=== PATIENT | female | born 1985 | race Caucasian/White ===

== ENCOUNTER 2016-04-29 11:44 | Emergency (ER) | payer OTHER ==
[~2016-04-29] VITALS: Ht 154.9 cm; Wt 81.0 kg
[~2016-04-29 11:44] MED LIST: IBUP800T23 PO; ZOFR4TAB3 SL
[2016-04-29 11:48] VITALS: BP 122/81; PULSE 82; RESP 16; TEMP 98; O2SAT 100
[2016-04-29] MEDS ORDERED: NAPROXEN 500 MG TAB PO ONE (12:15)
[2016-04-29] MEDS ORDERED: CYCLOBENZAPRINE HCL 10 MG TAB PO ONE (12:15)
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
[2016-04-29] MEDS ORDERED: NAPR500 PO (13:26)
[2016-04-29] MEDS ORDERED: CYCL1TAB29 PO (13:26)
== END 2016-04-29 13:32 | disposition home or self-care (01) ==
LOC: PHEFT 11:44
DX: S16.1XXA Strain of muscle, fascia and tendon at neck level, initial encounter (principal); M25.511 Pain in right shoulder; M25.561 Pain in right knee; V43.62XA Car passenger injured in collision with other type car in traffic accident, initial encounter; Y93.9 Activity, unspecified; Y92.9 Unspecified place or not applicable; Y99.9 Unspecified external cause status
CPT/HCPCS: 72050; 73030; 73564; 99283

== ENCOUNTER 2016-08-17 22:53 | Emergency (ER) | payer OTHER ==
[~2016-08-17] VITALS: Ht 154.9 cm; Wt 84.1 kg
[~2016-08-17 22:53] MED LIST changes: +CYCL1TAB29 PO; +NAPR500 PO
[2016-08-17 22:56] VITALS: BP 118/80; PULSE 92; RESP 18; TEMP 98.4; O2SAT 100
[2016-08-17] MEDS ORDERED: IBUPROFEN 800 MG TAB PO ONE (23:15)
[2016-08-17] MEDS ORDERED: PENICILLIN V POTASSIUM 500 MG TAB PO ONE (23:15)
[2016-08-17] MEDS ORDERED: IBUP800T23 PO (23:16)
[2016-08-17] MEDS ORDERED: PENI500T PO (23:16)
--- NOTE | 2016-08-17 23:21 | PD ---
HPI Chief Complaint: Oral / Dental Pain or Problem Time Seen by Provider: 23:12 Travel History International Travel<30 days: No Contact w/Intl Traveler<30days: No Traveled to known affect area: No History of Present Illness HPI 28th year-old female presents to the emergency department for complaint of one day of left mandible swelling and tenderness. Pain is 9/10 in intensity. Patient did take a one-time dose of ibuprofen 800 mg earlier in the afternoon. Patient denies other concerns or complaints. Patient does have referred pain to the ear. Patient denies any difficulty swallowing and has had no stridor or hoarseness. Patient denies history of . Patient's had no fever. Patient is not diabetic. PFSH Past Medical History Narrative Medical Bipolar disorder, dyslipidemia, hypertension, ovarian cyst; tubal ligation, C- section; LMP 08/09/16 denies ; tobacco use; nursing notes reviewed Hx Anticoagulant Therapy: No Bipolar Disorder: Yes Anxiety: Yes Cardiovascular Problems: No High Cholesterol: Yes Chemotherapy: No Cerebrovascular Accident: No Diabetes: No Diminished Hearing: No Gastrointestinal Disorders: Yes (GALLBLADDER DISEASE) Hypertension: Yes ( INDUCED 2004-) Respiratory: No Immunizations Current: Yes ?: Unknown LMP: August 09, 2016 : 4 Para: 3 Miscarriage: 1 Ovarian Cysts: Yes (2003 LEFT OVARY) Tubal Ligation: Yes Past Surgical History Section: Yes (x3) Hysterectomy: No Social History Alcohol Use: No Tobacco Use: No (QUIT 2009) Substance Use: No (HX OF BENZO ABUSE, DENIES (12/31/15)) Allergies-Medications (Allergen,Severity, Reaction): Coded Allergies: No Known Allergies (Verified , 08/17/16) Reported Meds & Prescriptions Reported Meds & Active Scripts Active Flexeril (Cyclobenzaprine HCl) 10 Mg Tab 10 Mg PO Q8HR PRN Naprosyn (Naproxen) 500 Mg Tab 500 Mg PO Q12HR PRN Ibuprofen 800 Mg Tab 800 Mg PO Q8H PRN Zofran Odt (Ondansetron Odt) 4 Mg Tab 4 Mg SL Q6HR PRN Review of Systems Except as stated in HPI: all other systems reviewed are Neg General / Constitutional: No: Fever HENT: Positive: Dental Difficulties, No: Congestion Cardiovascular: No: Chest Pain or Discomfort Respiratory: No: Shortness of Breath Gastrointestinal: No: Vomiting, Abdominal Pain Genitourinary: No: Flank Pain Musculoskeletal: No: Myalgias, Arthralgias Skin: Positive Lumps, No Rash Psychiatric: No: Anxiety (left jaw) Hematologic/Lymphatic: No: Lymph Node Enlargement Physical Exam Narrative GENERAL: Well-developed well-nourished obese female in no acute distress no respiratory distress; no stridor or hoarseness. SKIN: Warm and dry. HEAD: Normocephalic. EYES: No scleral icterus. No injection or drainage. ENT: Mucous membranes moist airway is patent dental caries noted and significant dental decay affecting the #14 tooth with gingival edema and tenderness induration without fluctuance or pointing reproducible pain at site of soft tissue swelling of jaw. NECK: Supple, trachea midline. No JVD or lymphadenopathy. CARDIOVASCULAR: Regular rate and rhythm without murmurs, gallops, or rubs. RESPIRATORY: Breath sounds equal bilaterally. No accessory muscle use. GASTROINTESTINAL: Abdomen soft, non-tender, nondistended. MUSCULOSKELETAL: No cyanosis, or edema. BACK: Nontender without obvious deformity. No CVA tenderness. Data Data Last Documented VS Vital Signs Date Time Temp Pulse Resp B/P Pulse Ox O2 Delivery O2 Flow Rate FiO2 08/17/16 22:56 98.4 92 18 118/80 100 MDM Medical Decision Making Medical Screen Exam Complete: Yes Emergency Medical Condition: Yes Medical Record Reviewed: Yes Differential Diagnosis Dentalgia, dental abscess, cusp fracture, cellulitis, sialadenitis Narrative Course Patient with significant dental decay involving the #14 tooth with associated gingival edema and tenderness non-pointing induration without fluctuance; exam and history consistent with dental abscess; patient given first dose of oral antibiotic Diagnosis Primary Impression: Dental abscess Referrals: Dentist call for appointment Patient Instructions: General Instructions Additional Instructions: Complete course of antibiotic as prescribed May use [id number] ibuprofen/Advil/Motrin 600 mg as often as every 6 hours or 800 mg as often as every 8 hours; or prescription ibuprofen 800 mg as often as every 8 hours for pain associated inflammation or for fever 100.4 days Fahrenheit or greater Follow-up with dentist call office in a.m. to schedule follow-up appointment Return to the emergency department for any concerns or change in condition Increase fluid hydration Follow soft diet Med/Other Pt SpecificInfo: Prescription(s) given Scripts Ibuprofen 800 Mg [id number] Mg PO Q8H PRN (PAIN GREATER THAN 5) #12 TAB Ref 0 Prov:Paula Nye MD 08/17/16 Penicillin V Potassium 500 Mg [id number] Mg PO Q6H 7 Days Ref 0 Prov:Paula Nye MD 08/17/16 Disposition: 01 DISCHARGE HOME Condition: Stable Paula Nye MD Aug 17, 2016 23:21
== END 2016-08-17 23:37 | disposition home or self-care (01) ==
LOC: PHED 22:53
DX: K04.7 Periapical abscess without sinus (principal); E78.5 Hyperlipidemia, unspecified; I10 Essential (primary) hypertension; E78.00 Pure hypercholesterolemia, unspecified; Z87.891 Personal history of nicotine dependence
CPT/HCPCS: 99283